=== PATIENT | female | born 1990 | race Caucasian/White ===

== ENCOUNTER 2018-01-23 13:18 | Emergency (ER) | payer OTHER ==
[2018-01-23 13:33] VITALS: BP 129/69
--- NOTE | 2018-01-23 13:45 | ED Physician Documentation ---
PD HPI OPHTHO - Stated complaint Stated Complaint: LT EYE DRAINAGE - Chief complaint Chief Complaint: Heent - History obtained from History obtained from: Patient - History of Present Illness Timing - onset: Today Timing - duration: Days (1) Timing - details: Abrupt onset Location: Left Quality / character: Burning Associated symptoms: Redness, Discharge. No: FB sensation, Decreased vision Contributing factors: Other (she had eyelash extensions put on yesterday and with discharge today in left eye. Right eye is feeling okay.). No: Exposed to conjunctivitis, FB Review of Systems Constitutional: denies: Fever, Chills Eyes: reports: Discharge, Irritation. denies: Loss of vision, Decreased vision , Photophobia Nose: denies: Rhinorrhea / runny nose, Congestion Throat: denies: Sore throat Respiratory: denies: Cough PD PAST MEDICAL HISTORY - Past Medical History Past Medical History: No - Past Surgical History Past Surgical History: No - Present Medications Home Medications: Ambulatory Orders Medication Instructions Recorded Confirmed Sulfacetamide 10% Ophth Drops 2 drops OPTH Q2H #1 bottle 01/23/18 [Sulfamide 10% Ophth Drops] - Allergies Allergies/Adverse Reactions: Allergies Allergy/AdvReac Type Severity Reaction Status Date / Time No Known Drug Allergies Allergy Verified 01/23/18 13:33 - Social History Does the pt smoke?: No Smoking Status: Never smoker Does the pt drink ETOH?: No Does the pt have substance abuse?: No - Immunizations Immunizations are current?: Yes - POLST Patient has POLST: No PD ED PE NORMAL - Vitals Vital signs reviewed: Yes - General General: Alert and oriented X 3, No acute distress, Well developed/nourished - HEENT HEENT: PERRL, EOMI, Other (left eye with some redness of the lower lid margin and with conjunctival redness and discharge. Right eye okay. ) Results - Vitals Vitals: Oxygen O2 Source Room air PD MEDICAL DECISION MAKING - ED course Complexity details: considered differential (focal redness and injection of the one eye. No URI symptoms. had extensions put on yesterday but no symptoms on right, so doubt chemical reaction. ), d/w patient Departure - Departure Disposition: 01 Home, Self Care Clinical Impression: Acute bacterial conjunctivitis Qualifiers: Laterality: left Qualified Code(s): H10.32 - Unspecified acute conjunctivitis, left eye Condition: Stable Record reviewed to determine appropriate education?: Yes Instructions: ED Conjunctivitis Bacterial Prescriptions: Sulfacetamide 10% Ophth Drops [Sulfamide 10% Ophth Drops] 2 drops OPTH Q2H #1 bottle Comments: Use the sulfa antibiotic eyedrops every 2-3 hours while awake for several days until completely better. Recheck if not improved over the next couple of days and return sooner if worsening. He could potentially use that in the right eye as well today just in case there is some cross contamination and catching it before it starts. Discharge Date/Time: 01/23/18 14:30
== END 2018-01-23 14:30 | disposition home or self-care (01) ==
LOC: ED 13:18
DX: H10.32 Unspecified acute conjunctivitis, left eye (principal)
CPT/HCPCS: 99283